=== PATIENT | female | born 1945 | race Caucasian/White ===

== ENCOUNTER → 2016-05-08 | Outpatient (CLI) | payer OTHER ==
[~2016-05-08] MED LIST: ACET-1256 PO; BECL0.072 INH; CHOL100027 PO; CLR10 PO; CYAN100048 PO; FERR325T18 PO; LEVA45AE INH; ONDA4TAB7 SL; RIVA1TAB PO; VNTHFA/IN INH
== END | disposition home or self-care (01) ==
LOC: C.PAPS 15:33
PROVIDERS: ATTEND Obstetrics & Gynecology
DX: Z01.419 Encounter for gynecological examination (general) (routine) without abnormal findings (principal)

== ENCOUNTER 2016-11-22 05:17 | Inpatient (IN) | payer OTHER ==
--- NOTE | 2016-11-14 12:02 | History and Physical ---
History & Physical Date Nov 14, 2016. Chief Complaint Chief complaint mass protruding from the vagina history of present illness patient is a 71-year-old 2 para 2 current general health is good she underwent menopause at age 53. She has some small fibroids. She has approximately 6 month history of a mass protruding from her vagina. It is worse when she coughs sneezes or strains. She has mild loss of urine on coughing or sneezing. Patient also experiences symptoms of pressure. Pelvic exam had revealed a cystocele and rectocele. She has good support of the uterus. She's presently being scheduled for an anterior colporrhaphy posterior colporrhaphy and insertion of suprapubic Cystocath. Past medical history she has 2 children in good health. Allergies she is allergic to morphine and sulfa and tape. She has no significant medical history. Surgeries consist of a tonsillectomy and adenoidectomy located fracture of the right elbow repaired surgically 2012 and a femur fracture repaired in 2013 with pins. Social history no smoking no excessive alcohol intake. 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 Family history mom age 88 of complications of 9 brain tumor bowel cancer and breast cancer. Father age 93 congestive heart failure. She has 1 brother and 1 sister. Sr. age 69 rheumatoid consultations of rheumatoid arthritis. Patient does not have any symptoms of's severe migraine headaches or frequent pelvic infections or kidney infections physical exam revealed a well-developed well-nourished 71-year-old white female alert oriented 3 and cooperative. Heart a regular rhythm S1 and S2 are normal. Clearly also patient percussion. Abdomen was soft and nontender. There was a scar on her right thigh. And also extensive scar on the area of her right elbow. Pelvic exam revealed good support of the uterus a second degree cystocele slightly protruding from the vaginal opening on coughing or sneezing and a first-degree rectocele. There is no calf tenderness. Impressions at this case a status post right femur fracture test post right elbow fracture status post DNA symptomatic cystocele and rectocele. History of Present Illness The patient is a 71 year old female with complaints of Past Medical/Surgical History Medical Problems: (1) Asthma (2) Fracture of elbow Additional History Hepatic Disease: No Endocrine Disorder: No Kidney Disease: No Hypertension: No Heart Disease: No Bleeding Tendencies: No Infectious Diseases: No Allergies Coded Allergies: Adhesives (Verified Allergy, Unknown, RASH, 09/18/13) Latex (Verified Allergy, Unknown, ., 09/18/13) Sulfa Antibiotics (Verified Allergy, Unknown, UNKNOWN, 09/18/13) Ciprofloxacin (Verified Adverse Reaction, Severe, DIARRHEA, 12/28/11) Home Medications Scheduled Cholecalciferol (Vitamin D 1000 Unit), 1,000 INTER.UNIT PO DAILY Cyanocobalamin (Vitamin B-12), 1,000 MCG PO DAILY Ferrous Gluconate (Ferrous Gluconate), 324 MG PO BIDM Ondansetron (Zofran Odt), 4 MG SL Q6H Rivaroxaban (Xarelto), 10 MG PO DAILY Scheduled PRN Acetaminophen (Tylenol), 1,000 MG PO Q4 PRN for Pain Albuterol Hfa (Ventolin Hfa), 1 PUFF INH for ALLERGIC REACTION Beclomethasone Dipropionate (Qvar), 1 PUFF INH for ALLERGIC REACTION Physical Examination Skin: warm/dry, no rash Eyes: normal inspection, EOMI, sclerae normal ENT: normal ENT inspection, pharynx normal Head: normocephalic, atraumatic Neck: supple, no adenopathy, trachea midline Respiratory/Chest: lungs clear, normal breath sounds, no respiratory distress Cardiovascular: regular rate, rhythm, no edema, no murmur Abdomen / GI: normal bowel sounds, non tender Back: normal inspection Extremities: + pertinent finding Neurologic/Psych: no motor/sensory deficits, alert, normal reflexes, oriented x 3 Plan of Treatment The patient's been scheduled for anterior and posterior colporrhaphy along with insertion of suprapubic Cystocath.
[2016-11-15 10:27] VITALS: BMI 23.0
--- NOTE | 2016-11-15 10:47 | PAT Medication Instructions ---
Service Date Nov 15, 2016. Current Home Medication List Acetaminophen (Tylenol), 1,000 MG PO Q4 PRN for Pain Albuterol Hfa (Ventolin Hfa), 1 PUFF INH for ALLERGIC REACTION Beclomethasone Dipropionate (Qvar), 1 PUFF INH for ALLERGIC REACTION Cholecalciferol (Vitamin D 1000 Unit), 2,000 INTER.UNIT PO QAM Cyanocobalamin (Vitamin B-12), 1,000 MCG PO QAM Levalbuterol Tartrate (Levalbuterol Tartrate Hfa), 2 PUFF INH PRN Loratadine (Claritin), 10 MG PO QAM PRN for pneumatic jacketer Instructions For Your Scheduled Surgery - Hold the following medications the morning of surgery: Loratadine (Claritin), 10 MG PO QAM PRN Cholecalciferol (Vitamin D 1000 Unit), 2,000 INTER.UNIT PO QAM Cyanocobalamin (Vitamin B-12), 1,000 MCG PO QAM - Take the following medications the morning of surgery with a sip of water: Levalbuterol Tartrate (Levalbuterol Tartrate Hfa), 2 PUFF INH PRN Acetaminophen (Tylenol), 1,000 MG PO Q4 PRN for Pain Albuterol Hfa (Ventolin Hfa), 1 PUFF INH for ALLERGIC REACTION (use if needed; BRING TO HOSPITAL) Beclomethasone Dipropionate (Qvar), 1 PUFF INH for ALLERGIC REACTION - Take the following medications as scheduled the night before surgery: Levalbuterol Tartrate (Levalbuterol Tartrate Hfa), 2 PUFF INH PRN Acetaminophen (Tylenol), 1,000 MG PO Q4 PRN for Pain If you have any questions please call us at [phone] or [phone] or [phone]
[2016-11-15 12:08] LABS: BASO % 0.6 %; BASO ABS # 0.03 K/uL (0-0.2); COMPLETE YES; EOS % 0.6 %; IG% 0.2 %; LYMPH % 18.8 %; LYMPH ABS # 0.96 K/uL (1.2-3.4); MEAN CELL VOLUME 91.5 fL (80-100); MEAN CORPUSCULAR HEMOGLOBIN 31.6 pg (25-34); MEAN CORPUSCULAR HGB CONC 34.5 g/dl (32-36); MEAN PLATELET VOLUME 10.3 fL (7.4-10.4); MONO % 10.2 %; NEUT % 69.6 %; PLATELET COUNT 267 K/uL (130-400); RED BLOOD COUNT 4.59 M/uL (4.2-5.4); WHITE BLOOD COUNT 5.12 K/uL (4.8-10.8)
[2016-11-15 12:15] LABS: PARTIAL THROMBOPLASTIN RATIO 1.1; PROTHROMBIN TIME (PATIENT) 10.9 SECONDS (9.0-12.0)
[2016-11-15 13:45] LABS: BUN/CREATININE RATIO 17.3 (10-20); CALCIUM 9.7 mg/dl (8.5-10.1); CREATININE 0.8 mg/dl (0.60-1.20)
[2016-11-22] VITALS (19 sets, daily range): BP systolic 118–168; BP diastolic 72–89; PULSE 50–70; TEMP 36.3–36.9; O2SAT 96–100; Ht 167.6 cm; Wt 65.3 kg
[~2016-11-22] VITALS: Ht 167.6 cm; Wt 65.3 kg
[~2016-11-22 05:17] MED LIST changes: -FERR325T18 PO; -ONDA4TAB7 SL; -RIVA1TAB PO
[2016-11-22] MEDS ORDERED: LACTATED RINGER'S 1000ML 1,000 ML IV SCH (06:00)
[2016-11-22] MEDS ORDERED: CEFOXITIN IV 2,000 MG in DEXTROSE 5% 50ML 50 ML IV SCH (06:00)
--- NOTE | 2016-11-22 06:35 | History & Physical Bridge Note ---
H&P Re-Evaluation Bridge Note: I have examined the patient, reviewed the History & Physical and in the interval since the performance of the History & Physical I have noted the following changes of clinical significance: No changes noted
[2016-11-22] MEDS ORDERED: PROPOFOL IV EMULSION 10 MG/ML 20 ML VIAL IV ONE (07:08)
[2016-11-22] MEDS ORDERED: DEXAMETHASONE SOD INJ 4 MG/ML VIAL ONE (07:08)
[2016-11-22] MEDS ORDERED: ONDANSETRON INJ 2 MG/ML 2 ML VIAL ONE ×2 (07:08→07:55)
[2016-11-22] MEDS ORDERED: LIDOCAINE HCL 2% 2 ML VIAL (20MG/ML) ONE (07:08)
[2016-11-22] MEDS ORDERED: FENTANYL CITRATE INJ 50 MCG/1 ML 2 ML VIAL ONE (07:09)
[2016-11-22] MEDS ORDERED: MIDAZOLAM HCL 1 MG/ML 2ML VIAL ONE ×2 (07:09→07:47)
[2016-11-22] MEDS ORDERED: SULFANILAMIDE 15% CR 120 GM TUBE ONE (07:12)
[2016-11-22] MEDS ORDERED: LIDOCAINE/EPINEPHRINE 1% 20 ML VIAL ONE ×2 (07:13→07:37)
[2016-11-22] MEDS ORDERED: NEOSTIGMINE METHYLSULFATE 5 MG/5 ML SYR ONE (07:23)
[2016-11-22] MEDS ORDERED: MoRPHine SULFATE PF 1 MG/ML 10 ML AMP/VIAL ONE (07:23)
[2016-11-22] MEDS ORDERED: ROCURONIUM BROMIDE 10 MG/ML 5 ML VIAL ONE (07:23)
[2016-11-22] MEDS ORDERED: GLYCOPYRROLATE INJ 0.2 MG/ML VIAL ONE (07:23)
[2016-11-22] MEDS ORDERED: EpHEDrine SULFATE 50MG/5ML SYR ONE (07:36)
[2016-11-22] MEDS ORDERED: LARYING-O-JET KIT (LTA) ONE ×2 (07:49)
[2016-11-22] MEDS ORDERED: PHENYLEPHRINE HCL INJ 10 MG/ML VIAL ONE (07:50)
[2016-11-22] MEDS ORDERED: LACTATED RINGER'S 1000ML 500 ML IV PRN (07:52)
[2016-11-22] MEDS ORDERED: SODIUM CHLORIDE 0.9% 1000ML 1,000 ML IV PRN (07:52)
[2016-11-22] MEDS ORDERED: NALOXONE HCL INJ 1 MG in SODIUM CHLORIDE 0.9% 1000ML 1,000 ML IV PRN ×4 (07:52)
[2016-11-22] MEDS ORDERED: NALOXONE HCL INJ 0.08 MG in SYRINGE 1.8 ML IV PRN (07:52)
[2016-11-22] MEDS ORDERED: PREMARIN VAG CRM 14 APPLN/30 GM TUBE ONE (07:59)
[2016-11-22] MEDS ORDERED: PHENYLEPHRINE 100MCG/ML 5ML SYR IV PRN (08:00)
[2016-11-22] MEDS ORDERED: MEPERIDINE HCL 25 MG/ML CARP IV PRN ×2 (08:00)
[2016-11-22] MEDS ORDERED: NALBUPHINE HCL INJ 10 MG/ML AMP IV PRN (08:00)
[2016-11-22] MEDS ORDERED: MoRPHine SULFATE PF 1 MG/ML 10 ML AMP/VIAL EPI PRN (08:00)
[2016-11-22] MEDS ORDERED: DiphenhydrAMINE HCL 50 MG/ML VIAL IV PRN (08:00)
[2016-11-22] MEDS ORDERED: ATROPINE SULFATE 0.1 MG/ML 5ML SYR IV PRN (08:00)
[2016-11-22] MEDS ORDERED: ONDANSETRON INJ 2 MG/ML 2 ML VIAL IV PRN ×2 (08:00)
[2016-11-22] MEDS ORDERED: NALOXONE HCL 0.4 MG/1 ML VIAL/CARP IV PRN (08:00)
[2016-11-22] MEDS ORDERED: KETOROLAC TROMETHAMINE 15 MG/ML VIAL IV. PRN ×3 (08:00→09:15)
[2016-11-22] MEDS ORDERED: PROMETHAZINE HCL INJ 6.25 MG in SODIUM CHLORIDE 0.9% 50ML 50 ML IV PRN (08:00)
[2016-11-22] MEDS ORDERED: EpHEDrine SULFATE INJ 50 MG/ML AMP IV PRN ×2 (08:00)
[2016-11-22] MEDS ORDERED: NO NARCOTICS OR SEDATIVES SCH (08:00)
[2016-11-22] MEDS ORDERED: D5W AND LACTATED RINGERS 1,000 ML IV SCH (09:09)
--- NOTE | 2016-11-22 09:14 | [facility] Post Operative Brief Note ---
Immediate Operative Summary Operative Date Nov 22, 2016. 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 Anterior vaginal wall Complication(s) None Disposition Recovery Room / PACU
[2016-11-22] MEDS ORDERED: MEPERIDINE HCL 50 MG/ML CARP IV PRN ×2 (09:15)
--- NOTE | 2016-11-22 09:37 | OPERATIVE REPORT ---
DATE OF OPERATION: 11/22/2016 INDICATIONS FOR SURGERY: Mass protruding from the bladder on coughing or sneezing. PREOPERATIVE DIAGNOSIS: Symptomatic cystocele. POSTOPERATIVE DIAGNOSIS: Same. PROCEDURE: Anterior colporrhaphy with insertion of suprapubic cystocath. SURGEON: Dr. Hoskins. ESTIMATED BLOOD LOSS: 100 mL. ANESTHESIA: General and intrathecal narcotics. OPERATIVE FINDINGS AND PROCEDURE: The patient was brought to the OR table, given intrathecal narcotics and given general anesthesia. Perineum and vagina were painted with Betadine paint, draped in usual sterile fashion. Weighted speculum was placed in the posterior vagina. At this time, it was noted that uterus had good support. Even with traction on the uterus you could not bring the cervix out to the vaginal opening. There was a large cystocele noted with loss of support of the bladder neck. An anterior colporrhaphy was performed by grasping the midline of the vaginal mucosa 1 cm from the urethral meatus infiltrating the bladder in the midline with local with epinephrine and then making an incision and then extending the incision King scissors. We extended the incision right down to the cervix. We then grasped the vaginal edges with T-clamps and then dissected the vaginal mucosa off the bladder wall, leaving as much fascial layer as possible and taking the vaginal mucosa off thin. This was done until we could get under the pubic ramus on either side of the bladder neck and out laterally. We then reduced the cystocele by using interrupted [id number] 4-0 Vicryl sutures. We essentially placed 2 layers and this created good hemostasis and you could actually see the fascial layer repair being brought together intact. We then did a support suture of heavy chromic a right at the urethrovaginal angle by going out laterally on both the left and right side under the pubic ramus and then using a suture to bring the fascia under the bladder neck to support it. After this, then I bolstered this by using a mattress suture of heavy duty chromic through the vagina in a mattress fashion that further supported urethrovesical angle. We then excised the excess vaginal mucosa and used interrupted [id number] sutures of 4-0 Vicryl to approximate the vaginal edges. Hemostasis was good. Careful inspection of the vaginal opening and the posterior compartment revealed that it was intact. She had good cervical length, good support and we elected not to proceed with the posterior repair due to the fact that the anatomy was good and had we done the posterior repair we might have narrowed the vagina too much for it to be functional. Following this, the bladder was emptied with a catheter. Urine was clear. We then refilled with 500 mL of normal saline and then inserted a suprapubic trocar and sleeve, removed the trocar and through the sleeve we put a catheter which we then sewed to the anterior abdominal wall. I then removed 200s mL of the 500 mL I then instilled leaving about 300 mL in the bladder. At this point urine was clear. Vaginal bleeding was minimal and the patient was in good condition. I attest to the content of the Intraoperative Record and any orders documented therein. Any exception s are noted below.
--- NOTE | 2016-11-22 09:48 | Anesthesiology Progress Note ---
Anesthesia Post Op Note Date & Time Nov 22, 2016 at 09:48 Vital Signs Pain Intensity: 0 Vital Signs Past 12 Hours Date Time Temp Pulse Resp B/P (MAP) Pulse Ox O2 Delivery O2 Flow Rate FiO2 11/22/16 09:11 36 73 16 156/89 100 Mask 10 11/22/16 05:41 36.7 70 16 168/89 98 Room Air Notes Mental Status: alert / awake / arousable, participated in evaluation Pt Amnestic to Procedure: Yes Nausea / Vomiting: adequately controlled Pain: adequately controlled Airway Patency, RR, SpO2: stable & adequate BP & HR: stable & adequate Hydration State: stable & adequate Anesthetic Complications: no major complications apparent
[2016-11-22] MEDS ORDERED: NURSING VERBAL MED ORDER ONE ×2 (16:45)
[2016-11-22] MEDS: ACETAMINOPHEN 500 MG TAB PO PRN (22:31)
[2016-11-23] MEDS ORDERED: DC INTRASPINAL MORPHINE SCH
[2016-11-23] MEDS ORDERED: MEPERIDINE HCL 50 MG/ML CARP IV PRN ×2
[2016-11-23] MEDS ORDERED: ONDANSETRON INJ 2 MG/ML 2 ML VIAL IV PRN
[2016-11-23] MEDS ORDERED: OXYCODONE/ACETAMINOPHEN 5-325 TAB PO PRN
[2016-11-23 04:20] VITALS: BP 135/80; PULSE 65; TEMP 36.7; O2SAT 96
[2016-11-23] MEDS: IBUPROFEN 600 MG TAB PO PRN ×3 (04:38→18:39)
[2016-11-23 07:15] VITALS: BP 128/70; PULSE 59; TEMP 36.6; O2SAT 96
[2016-11-23 08:03] LABS: BASO % 0.2 %; BASO ABS # 0.02 K/uL (0-0.2); COMPLETE YES; EOS % 0.1 %; HEMATOCRIT 37.8 % (37-47); IG% 0.2 %; LYMPH % 11.6 %; LYMPH ABS # 1.49 K/uL (1.2-3.4); MEAN CELL VOLUME 92.2 fL (80-100); MEAN CORPUSCULAR HEMOGLOBIN 30.5 pg (25-34); MEAN CORPUSCULAR HGB CONC 33.1 g/dl (32-36); MEAN PLATELET VOLUME 10.4 fL (7.4-10.4); MONO % 6.4 %; NEUT % 81.5 %; PLATELET COUNT 219 K/uL (130-400); WHITE BLOOD COUNT 12.88 K/uL (4.8-10.8)
--- NOTE | 2016-11-23 08:30 | Progress Note ---
Subjective Nov 23, 2016. Subjective conversation w/ patient Ambulation: ambulating normally Voiding: vega catheter in place Passing Gas: Yes Diet Tolerance: Regular Diet Lochia: Small Review of Systems Constitutional: + fever Objective Vital Signs Date Time Temp Pulse Resp B/P (MAP) Pulse Ox O2 Delivery O2 Flow Rate FiO2 11/23/16 07:15 96 Room Air 11/23/16 07:15 36.6 59 18 128/70 (89) 96 Room Air 11/23/16 04:20 36.7 65 18 135/80 (98) 96 Room Air 11/22/16 23:45 18 97 11/22/16 23:10 36.9 64 18 118/72 (87) 98 Room Air 11/22/16 23:10 98 Room Air 11/22/16 22:45 18 99 11/22/16 21:45 20 97 11/22/16 20:45 20 99 11/22/16 19:45 36.5 63 18 133/78 (96) 98 Room Air 11/22/16 19:45 18 98 11/22/16 19:00 18 97 11/22/16 18:18 20 98 11/22/16 17:20 18 99 11/22/16 16:20 18 98 11/22/16 16:00 36.7 54 18 136/77 (96) 97 Room Air 11/22/16 16:00 Room Air 11/22/16 15:20 20 97 11/22/16 14:20 18 97 11/22/16 13:20 36.5 56 20 136/72 (93) 96 Room Air 11/22/16 13:20 20 96 11/22/16 12:20 36.5 55 18 145/76 (99) 98 Room Air 11/22/16 12:20 18 98 11/22/16 11:15 36.5 54 16 140/82 (101) 99 Room Air 11/22/16 11:15 16 99 11/22/16 10:50 Room Air 11/22/16 10:50 100 Nasal Cannula 2.0 11/22/16 10:50 36.5 50 18 142/78 (99) 99 Room Air 11/22/16 10:20 36.3 58 16 159/79 (105) 100 Room Air 11/22/16 10:20 16 100 11/22/16 10:11 58 19 11/22/16 10:11 78 19 162/80 88 11/22/16 10:07 160/92 11/22/16 10:06 64 23 100 11/22/16 10:06 63 23 11/22/16 10:01 62 13 11/22/16 10:01 64 13 125/103 99 11/22/16 09:59 36.2 52 20 156/77 99 Nasal Cannula 2 11/22/16 09:56 53 17 11/22/16 09:56 52 17 156/77 98 11/22/16 09:51 49 17 152/76 99 11/22/16 09:51 49 17 11/22/16 09:46 62 18 11/22/16 09:46 61 18 157/85 100 11/22/16 09:41 53 16 11/22/16 09:41 54 16 150/88 100 11/22/16 09:36 65 17 11/22/16 09:36 64 17 170/87 100 11/22/16 09:31 58 12 11/22/16 09:31 59 12 143/86 100 11/22/16 09:26 60 19 160/79 100 11/22/16 09:26 59 19 11/22/16 09:21 63 13 11/22/16 09:21 64 13 147/74 100 11/22/16 09:16 71 20 142/78 100 11/22/16 09:16 70 20 11/22/16 09:11 36 73 16 156/89 100 Mask 10 11/22/16 09:11 78 21 11/22/16 09:11 78 21 156/89 100 Physical Exam General Appearance: WELL-APPEARING Abdomen: non tender Extremities: no pedal edema, no calf tenderness Laboratory Results Last 24 Hours Test 11/23/16 07:24 White Blood Count 12.88 K/uL Red Blood Count 4.10 M/uL Hemoglobin 12.5 g/dL Hematocrit 37.8 % Mean Corpuscular Volume 92.2 fL Mean Corpuscular Hemoglobin 30.5 pg Mean Corpuscular Hemoglobin Concent 33.1 g/dl Platelet Count 219 K/uL Mean Platelet Volume 10.4 fL Neutrophils (%) (Auto) 81.5 % Lymphocytes (%) (Auto) 11.6 % Monocytes (%) (Auto) 6.4 % Eosinophils (%) (Auto) 0.1 % Basophils (%) (Auto) 0.2 % Neutrophils # (Auto) 10.50 K/uL Lymphocytes # (Auto) 1.49 K/uL Monocytes # (Auto) 0.83 K/uL Eosinophils # (Auto) 0.01 K/uL Basophils # (Auto) 0.02 K/uL RDW Standard Deviation 45.2 fL RDW Coefficient of Variation 13.4 % Immature Granulocyte % (Auto) 0.2 % Immature Granulocyte # (Auto) 0.03 K/uL Assessment and Plan Post-Op Day#: 1 Continue Routine Care: packing in place
[2016-11-23] MEDS: ACETAMINOPHEN 500 MG TAB PO PRN (08:33)
--- NOTE | 2016-11-23 09:50 | Anesthesiology Progress Note ---
Anesthesia Post Op Note Date & Time Nov 23, 2016 at 09:49 Vital Signs Vital Signs Past 12 Hours Date Time Temp Pulse Resp B/P (MAP) Pulse Ox O2 Delivery O2 Flow Rate FiO2 11/23/16 07:15 96 Room Air 11/23/16 07:15 36.6 59 18 128/70 (89) 96 Room Air 11/23/16 04:20 36.7 65 18 135/80 (98) 96 Room Air 11/22/16 23:45 18 97 11/22/16 23:10 36.9 64 18 118/72 (87) 98 Room Air 11/22/16 23:10 98 Room Air 11/22/16 22:45 18 99 Notes Mental Status: alert / awake / arousable, participated in evaluation Pt Amnestic to Procedure: Yes Nausea / Vomiting: adequately controlled Pain: adequately controlled Airway Patency, RR, SpO2: stable & adequate BP & HR: stable & adequate Hydration State: stable & adequate Anesthetic Complications: no major complications apparent
[2016-11-23 13:40] VITALS: BP 151/83; PULSE 60; TEMP 36.6; O2SAT 96
[2016-11-23 16:00] VITALS: BP 149/80; PULSE 53; TEMP 36.9; O2SAT 99
[2016-11-23] MEDS: DOCUSATE SODIUM 100 MG CAP PO SCH (20:43)
[2016-11-23 23:45] VITALS: BP 139/71; PULSE 65; TEMP 36.7; O2SAT 96
[2016-11-24] MEDS: ACETAMINOPHEN 500 MG TAB PO PRN ×3 (00:04→18:20)
[2016-11-24 07:02] LABS: BASO % 0.5 %; BASO ABS # 0.04 K/uL (0-0.2); COMPLETE YES; EOS % 0.7 %; HEMATOCRIT 39.5 % (37-47); IG% 0.1 %; LYMPH % 24.3 %; MEAN CELL VOLUME 93.6 fL (80-100); MEAN CORPUSCULAR HEMOGLOBIN 31.8 pg (25-34); MEAN CORPUSCULAR HGB CONC 33.9 g/dl (32-36); MEAN PLATELET VOLUME 10.4 fL (7.4-10.4); MONO % 8.8 %; NEUT % 65.6 %; PLATELET COUNT 234 K/uL (130-400); RED BLOOD COUNT 4.22 M/uL (4.2-5.4); WHITE BLOOD COUNT 8.64 K/uL (4.8-10.8)
[2016-11-24 07:36] VITALS: BP 159/73; PULSE 56; TEMP 36.6; O2SAT 96
[2016-11-24] MEDS: DOCUSATE SODIUM 100 MG CAP PO SCH ×2 (09:58→19:53)
[2016-11-24 11:18] VITALS: BP 150/83; PULSE 60; O2SAT 97
--- NOTE | 2016-11-24 12:12 | Progress Note ---
Subjective Nov 24, 2016. Subjective conversation w/ patient Ambulation: ambulating normally Voiding: vega catheter in place Passing Gas: Yes Diet Tolerance: Regular Diet Lochia: Small Review of Systems Constitutional: + fever Objective Vital Signs Date Time Temp Pulse Resp B/P (MAP) Pulse Ox O2 Delivery O2 Flow Rate FiO2 11/24/16 11:18 60 20 150/83 (105) 97 Room Air 11/24/16 08:00 Room Air 11/24/16 07:36 36.6 56 16 159/73 (101) 96 Room Air 11/23/16 23:45 96 Room Air 11/23/16 23:45 36.7 65 18 139/71 (93) 96 Room Air 11/23/16 16:00 99 Room Air 11/23/16 16:00 36.9 53 18 149/80 (103) 99 Room Air 11/23/16 13:40 36.6 60 20 151/83 (105) 96 Room Air Physical Exam General Appearance: WELL-APPEARING Respiratory/Chest: lungs clear Abdomen: non tender Extremities: no pedal edema, no calf tenderness Laboratory Results Last 24 Hours Test 11/24/16 06:35 White Blood Count 8.64 K/uL Red Blood Count 4.22 M/uL Hemoglobin 13.4 g/dL Hematocrit 39.5 % Mean Corpuscular Volume 93.6 fL Mean Corpuscular Hemoglobin 31.8 pg Mean Corpuscular Hemoglobin Concent 33.9 g/dl Platelet Count 234 K/uL Mean Platelet Volume 10.4 fL Neutrophils (%) (Auto) 65.6 % Lymphocytes (%) (Auto) 24.3 % Monocytes (%) (Auto) 8.8 % Eosinophils (%) (Auto) 0.7 % Basophils (%) (Auto) 0.5 % Neutrophils # (Auto) 5.67 K/uL Lymphocytes # (Auto) 2.10 K/uL Monocytes # (Auto) 0.76 K/uL Eosinophils # (Auto) 0.06 K/uL Basophils # (Auto) 0.04 K/uL RDW Standard Deviation 47.1 fL RDW Coefficient of Variation 13.7 % Immature Granulocyte % (Auto) 0.1 % Immature Granulocyte # (Auto) 0.01 K/uL Assessment and Plan Post-Op Day#: 2 Continue Routine Care: vaginal packing removed
[2016-11-24 16:00] VITALS: BP 143/78; PULSE 61; TEMP 36.4; O2SAT 97
[2016-11-24] MEDS: IBUPROFEN 600 MG TAB PO PRN (19:16)
[2016-11-24 23:20] VITALS: BP 148/71; PULSE 65; TEMP 36.8; O2SAT 96
[2016-11-25 08:04] VITALS: BP 125/83; PULSE 60; TEMP 37.6; O2SAT 98
[2016-11-25 08:10] VITALS: BP 139/96; PULSE 70; TEMP 36.5; O2SAT 96
[2016-11-25] MEDS: DOCUSATE SODIUM 100 MG CAP PO SCH ×2 (08:37→20:58)
[2016-11-25] MEDS: ACETAMINOPHEN 500 MG TAB PO PRN ×2 (08:38→17:23)
--- NOTE | 2016-11-25 11:26 | Progress Note ---
Subjective Nov 25, 2016. Subjective conversation w/ patient Ambulation: ambulating normally Voiding: vega catheter in place Passing Gas: Yes Diet Tolerance: Regular Diet Lochia: Small Review of Systems Constitutional: + fever Objective Vital Signs Date Time Temp Pulse Resp B/P (MAP) Pulse Ox O2 Delivery O2 Flow Rate FiO2 11/25/16 08:10 36.5 70 18 139/96 (110) 96 Room Air 11/25/16 08:00 Room Air 11/24/16 23:20 96 Room Air 11/24/16 23:20 36.8 65 18 148/71 (96) 96 Room Air 11/24/16 16:00 Room Air 11/24/16 16:00 36.4 61 18 143/78 (99) 97 Room Air Physical Exam General Appearance: WELL-APPEARING Extremities: no pedal edema, no calf tenderness Assessment and Plan Post-Op Day#: 3 Continue Routine Care: voiding in small amount with high residuals
[2016-11-25 16:00] VITALS: BP 160/87; PULSE 62; TEMP 36.5; O2SAT 99
[2016-11-25 23:30] VITALS: BP 157/84; PULSE 90; TEMP 36.6; O2SAT 97
[2016-11-26 08:00] VITALS: BP 137/90; PULSE 70; TEMP 36.8; O2SAT 96
[2016-11-26] MEDS: DOCUSATE SODIUM 100 MG CAP PO SCH (08:40)
--- NOTE | 2016-11-26 10:49 | Progress Note ---
Subjective Nov 26, 2016. Subjective conversation w/ patient Ambulation: ambulating normally Voiding: vega catheter in place Passing Gas: Yes Diet Tolerance: Regular Diet Lochia: Small Review of Systems Constitutional: + fever Objective Vital Signs Date Time Temp Pulse Resp B/P (MAP) Pulse Ox O2 Delivery O2 Flow Rate FiO2 11/26/16 08:00 96 Room Air 11/26/16 08:00 36.8 70 18 137/90 (106) 96 Room Air 11/25/16 23:30 Room Air 11/25/16 23:30 36.6 90 16 157/84 (108) 97 Room Air 11/25/16 16:00 36.5 62 16 160/87 (111) 99 Room Air 11/25/16 16:00 Room Air Physical Exam General Appearance: WELL-APPEARING Respiratory/Chest: lungs clear Abdomen: non tender Extremities: no pedal edema, no calf tenderness Assessment and Plan Post-Op Day#: 4 Continue Routine Care: suprapubic catheter draining well voiding in small amounts
--- NOTE | 2016-11-26 10:52 | Discharge Instructions ---
Discharge Instructions Date of Service Nov 26, 2016. Admission Reason for Admission: Cystocele With Pressure, Rectocele Discharge Discharge Diagnosis / Problem: mass protruding from the vagina Discharge Goals Goal(s): Routine recovery after surgery Activity Recommendations Activity Limitations: as noted below ACTIVITY RECOMMENDATIONS: * Gradual return to full activity over next 2-3 weeks. * No heavy lifting over next 2-3 weeks. * Nothing in the vagina (no intercourse, tampons, or douching) for 4 weeks * You may walk up and down steps as necessary. * You may drive a car in 2 weeks. * Hot shower or tub bath daily. SPECIAL CARE INSTRUCTIONS: * Check temperature twice daily for one week. Report any elevation over 100.4 degrees Fahrenheit (38.0 degrees Celsius). * Call your doctor if bleeding becomes heavier than the heaviest part of your period - saturating a sanitary pad within an hour. * If you develop a red, hard, warm swollen lump on your incision or if you develop any separation of or drainage from your incision, notify your doctor. . Instructions / Follow-Up Instructions / Follow-Up ACTIVITY RECOMMENDATIONS: * Gradual return to full activity over next 2-3 weeks. * No heavy lifting over next 2-3 weeks. * Nothing in the vagina (no intercourse, tampons, or douching) for 4 weeks * You may walk up and down steps as necessary. * You may drive a car in 2 weeks. * Hot shower or tub bath daily. SPECIAL CARE INSTRUCTIONS: * Check temperature twice daily for one week. Report any elevation over 100.4 degrees Fahrenheit (38.0 degrees Celsius). * Call your doctor if bleeding becomes heavier than the heaviest part of your period - saturating a sanitary pad within an hour. * If you develop a red, hard, warm swollen lump on your incision or if you develop any separation of or drainage from your incision, notify your doctor. Current Hospital Diet Patient's current hospital diet: Regular Diet Discharge Diet Recommended Diet: Regular Diet Procedures Procedures Performed: Anterior Posterior Colporrhaphy; Insertion of Suprapubic Cystocath Pending Studies Studies pending at discharge: no Medical Emergencies . Who to Call and When: Medical Emergencies: If at any time you feel your situation is an emergency, please call 911 immediately. . Non-Emergent Contact Non-Emergency issues call your: [facility] [employer] Call Non-Emergent contact if: temperature is above 100.5 . . "Provider Documentation" section prepared by Carlos Hoskins. . VTE Core Measure Inpt VTE Proph given/why not?: Treatment not indicated
--- NOTE | 2016-11-26 11:20 | DISCHARGE SUMMARY ---
Mrs. Montgomery was admitted with symptoms of a mass protruding from the vagina when she coughed, sneezed or strained. Preoperative diagnosis was symptomatic cystocele. On the day of admission she was given prophylactic antibiotics and also intrathecal spinal narcotics and taken to the OR, where she underwent anterior colporrhaphy with insertion of suprapubic cystocath. Inspection of the posterior compartment revealed good support and at that time, we felt that a posterior repair was not necessary and that also might reduce vaginal capacity. Postoperatively, she did well. She remained afebrile. Vaginal packing, which had been inserted at the time of surgery, was removed on the second postoperative day. On the third postoperative day, we started clamping the [place]. She did have some difficulty with a lot of spasm and pain on the first day. She did void some small drops and due to the pain and difficulty, we kept her in the hospital on the following day. On her fourth postoperative day, she was much better. She was still voiding in small amounts, but she did not have the terrible pain with the bladder spasms. She was discharged to be followed at home and office and given the usual instructions on how to manage the suprapubic catheter and to call when she is voiding in large amounts and residuals were under 100 mL. MARLENE
[2016-11-26 11:30] VITALS: BP 137/90; PULSE 70; TEMP 36.8; O2SAT 96
== END 2016-11-26 11:30 | disposition home or self-care (01) | DRG 747 ==
LOC: C.ACU 05:17 → C.MS4N 05:30 → ENRESERV 09:46
PROVIDERS: ADMIT Obstetrics & Gynecology; ATTEND Obstetrics & Gynecology
PROC: 0UQG0ZZ Repair Vagina, Open Approach (ICD-10-PCS; principal; 2016-11-22 07:00)
DX: N81.10 Cystocele, unspecified (principal)

== ENCOUNTER → 2017-12-21 | Outpatient (CLI) | payer OTHER ==
[~2017-12-21] MED LIST changes: -VNTHFA/IN INH
== END | disposition home or self-care (01) ==
LOC: C.LABBC 09:50
PROVIDERS: ATTEND Family Medicine
DX: Z11.59 Encounter for screening for other viral diseases (principal); Z13.220 Encounter for screening for lipoid disorders; Z13.1 Encounter for screening for diabetes mellitus